=== PATIENT | female | born 1950 | race African-American/Black ===

== ENCOUNTER → 2016-03-17 | Outpatient (CLI) | payer MEDICARE, BC ==
--- NOTE | 2016-03-17 12:09 | KCIC ---
Bilateral digital screening mammograms with CAD: HISTORY Routine screening. COMPARISON No previous films are available for comparison. FINDINGS Breast density category B. The skin and nipples show no abnormalities. No abnormal lymph nodes are seen in the axilla. The breast parenchyma shows scattered fibroglandular density. There is some nodularity present in the left breast at approximately the 10 o'clock and 11 o'clock B positions. Recommend further evaluation with cone compression views and ultrasound. There are no other dominant masses, suspicious calcifications or architectural distortions. IMPRESSION Nodularity at the 10 o'clock and 11 o'clock B positions of the left breast. Recommend further evaluation with additional views and ultrasound. This study was interpreted with the benefit of Computerized Aided Detection (CAD). Mammography is not 100% sensitive in detecting breast cancer. Therefore, a self breast exam and a clinical breast exam are very important. A negative mammogram does not negate a clinically suspicious finding and should not result in a delay in biopsying a clinically suspicious abnormality. BI-RADS category 0: Incomplete. Additional imaging is recommended. This patient's information has been entered into a reminder system for the patient to be notified with the results of this examination and a target date for her next mammograms. Electronically signed by: Delma Claire MD (Mar 17, 2016 12:08:11)
== END | disposition home or self-care (01) ==
LOC: KCIC MAMMO 08:46
PROVIDERS: ATTEND Family Medicine
DX: Z12.31 Encounter for screening mammogram for malignant neoplasm of breast (principal)
CPT/HCPCS: G0202; 77067

== ENCOUNTER → 2016-09-13 | Outpatient (CLI) | payer MEDICARE, BC ==
--- NOTE | 2016-09-13 14:56 | RAD ---
EXAM: BREAST LEFT, DIGITAL DIAGNOSTIC LT HISTORY: Follow-up of asymmetries of left breast. COMPARISON: Priors including 03/17/2016 Standard mammographic views are obtained of the left breast. This study was interpreted with the benefit of Computerized Aided Detection (CAD). FINDINGS: The breast parenchyma shows scattered fibroglandular densities. Breast parenchyma level II. There is repeat demonstration of some asymmetric tissue within the left upper breast which does not appear significantly changed when compared to prior examination. The patient was then sent ultrasound to further evaluate the region. Focused ultrasound images were obtained at the 10:00 position of the left breast in the region of concern on prior exam. There are no definite masses within this region. There is glandular tissue as well as fatty tissue seen within the region. IMPRESSION: No major change in appearance of previously identified asymmetry of the left breast. Could be secondary to asymmetric glandular tissue but would obtain a follow-up in 6 months to ensure no increase. BI-RADS CATEGORY: 3 PROBABLE BENIGN-SHORT TERM F/U RECOMMENDED FOLLOW-UP: 6M 6 MONTH FOLLOW-UP PQRS compliance statement: Patient information was entered into a reminder system with a target due date for the next mammogram. Mammography is a sensitive method for finding small breast cancers, but it does not detect them all and is not a substitute for careful clinical examination. A negative mammogram does not negate a clinically suspicious finding and should not result in delay in biopsying a clinically suspicious abnormality. "Our facility is accredited by the [employer] Mammography [employer]."
== END | disposition home or self-care (01) ==
LOC: KCIC MAMMO 12:45
PROVIDERS: ATTEND Family Medicine
DX: N64.89 Other specified disorders of breast (principal)
CPT/HCPCS: 76641; G0206; 77065

== ENCOUNTER → 2017-03-23 | Outpatient (CLI) | payer BC | END | disposition home or self-care (01) | LOC: MAMMO 10:36 | DX: Z12.31 Encounter for screening mammogram for malignant neoplasm of breast (principal) | CPT/HCPCS: 77067 ==

== ENCOUNTER → 2018-05-14 | Outpatient (CLI) | payer BC ==
--- NOTE | 2018-05-14 10:23 | RAD ---
DATE: 05/14/2018 EXAM: MAMMO CARSON SCREENING BILATERAL HISTORY: Routine screening mammogram. COMPARISON: Previous mammogram from 03/23/2017. This study was interpreted with the benefit of Computerized Aided Detection (CAD). FINDINGS: Breast Density: SCATTERED The breast parenchyma shows scattered fibroglandular densities. Breast parenchyma level B. The skin and nipples are within normal limits. No suspicious calcifications, spiculated mass or area of architectural distortion. IMPRESSION: No mammographic evidence of malignancy. Stable mammogram. BI-RADS CATEGORY: 2 BENIGN FINDING(S) RECOMMENDED FOLLOW-UP: 12M 12 MONTH FOLLOW-UP PQRS compliance statement: Patient information was entered into a reminder system with a target due date for the next mammogram. Mammography is a sensitive method for finding small breast cancers, but it does not detect them all and is not a substitute for careful clinical examination. A negative mammogram does not negate a clinically suspicious finding and should not result in delay in biopsying a clinically suspicious abnormality. "Our facility is accredited by the [employer] Mammography [employer]."
== END | disposition home or self-care (01) ==
LOC: MAMMO 07:51
PROVIDERS: ATTEND Family Medicine
DX: Z12.31 Encounter for screening mammogram for malignant neoplasm of breast (principal)
CPT/HCPCS: 77063; 77067

== ENCOUNTER → 2019-02-21 | Outpatient (CLI) | payer BC ==
--- NOTE | 2019-02-21 08:29 | RAD ---
Examination: Ultrasound left axilla HISTORY: History of left axillary lump COMPARISON: None available Findings/ impression: Ultrasound of the left axilla demonstrates a 9 mm hypoechogenicity without significant vascular flow, uncertain etiology, could be a small lymph node or nodule. Recommend CT with IV contrast if clinically feasible for better evaluation. Electronically signed by: Enrrique Olea MD (02/21/2019 8:26 AM) [id number]
== END | disposition home or self-care (01) ==
LOC: US 08:02
PROVIDERS: ATTEND Family Medicine
DX: R22.32 Localized swelling, mass and lump, left upper limb (principal)
CPT/HCPCS: 76881

== ENCOUNTER → 2019-09-30 | Outpatient (CLI) | payer BC ==
--- NOTE | 2019-10-01 13:42 | RAD ---
DATE: 09/30/2019 7:49 AM EXAM: MAMMO CARSON SCREENING BILATERAL HISTORY: Screening COMPARISON: 05/14/2018, 03/23/2017 Bilateral CC and MLO views of the breasts were performed. Bilateral breast tomosynthesis was performed in CC and MLO projections. This study was interpreted with the benefit of Computerized Aided Detection (CAD). FINDINGS: Breast Density: SCATTERED The breast parenchyma shows scattered fibroglandular densities. Breast parenchyma level B No suspicious masses, microcalcifications or architectural distortion is present to suggest malignancy in either breast. The visualized axillae are unremarkable. IMPRESSION: No mammographic evidence of malignancy. BI-RADS CATEGORY: 1 NEGATIVE RECOMMENDED FOLLOW-UP: 12M 12 MONTH FOLLOW-UP Annual screening mammography is recommended, unless clinically indicated sooner based on symptoms or change in physical exam. PQRS compliance statement: Patient information was entered into a reminder system with a target due date for the next mammogram. Mammography is a sensitive method for finding small breast cancers, but it does not detect them all and is not a substitute for careful clinical examination. A negative mammogram does not negate a clinically suspicious finding and should not result in delay in biopsying a clinically suspicious abnormality. "Our facility is accredited by the [employer] Mammography [employer]."
== END | disposition home or self-care (01) ==
LOC: MAMMO 07:42
PROVIDERS: ATTEND Family Medicine
DX: Z12.31 Encounter for screening mammogram for malignant neoplasm of breast (principal)
CPT/HCPCS: 77063; 77067

== ENCOUNTER → 2020-08-27 | Outpatient (CLI) | payer BC ==
--- NOTE | 2020-08-27 08:33 | KCIC ---
EXAMINATION: DXA BONE DENSITY AXIAL INDICATION:69 years, Female, or osteoporosis without current pathological fracture. COMPARISON: None. TECHNIQUE: Dual energy x-ray absorptiometry of the lumbar spine and both hips was performed. T-score of average bone mineral density based was calculated based on standard deviations above or below the expected young adult normal value. FINDINGS: * The average bone mineral density associated with L1-L4 is 0.844 g/cm^2, corresponding with a T-sco re of -1.8. * Left femoral neck bone mineral density is 0.765 g/cm^2, corresponding with a T-score of -1.5. Refer to the worksheets for full detail. IMPRESSION: 1. Lumbar spine demonstrates osteopenia. Average bone mineral density yields a T-score between -1.0 a nd -2.5. Fracture risk is increased. 2. Left femoral neck demonstrates osteopenia. Average bone mineral density yields a T-score between - 1.0 and -2.5. Fracture risk is increased. Notice: BMD in post menopausal women is classified as normal (T score = -1 or higher), osteopenia (T score = -1.1 to -2.4), or osteoporosis (T score = -2.5 for less), according to criteria established b y the WHO. Electronically signed by: Jocelyne Marroquin MD (08/27/2020 8:30 AM) [id number]
== END ==
LOC: KCIC DEXA 07:53
PROVIDERS: ATTEND Family Medicine
DX: M85.89 Other specified disorders of bone density and structure, multiple sites (principal); M81.0 Age-related osteoporosis without current pathological fracture
CPT/HCPCS: 77080

== ENCOUNTER → 2020-09-30 | Outpatient (CLI) | payer BC ==
--- NOTE | 2020-09-30 09:15 | RAD ---
EXAM: Bilateral digital screening mammogram with tomosynthesis. HISTORY: 69-year-old female presents for screening mammography. TECHNIQUE: Full-field digital craniocaudal and mediolateral oblique 2D and 3D tomosynthesis images of both breasts are obtained for evaluation. Computer aided detection was applied. COMPARISON: 09/30/2019 and 05/14/2018 BREAST PARENCHYMAL DENSITY: Level B - Scattered fibroglandular densities. FINDINGS: There is no new suspicious mass, microcalcification or region of architectural distortion. IMPRESSION: BI-RADS Category 2: Benign finding(s). RECOMMENDATION: Annual mammography is recommended. If your mammogram demonstrates that you have dense breast tissue, which could hide abnormalities, and if you have other risk factors for breast cancer that have been identified, you might benefit from s upplemental screening tests that may be suggested by your ordering physician. Dense breast tissue, i n and of itself, is a relatively common condition. This information is not provided to cause undue c oncern, but rather to raise your awareness and to promote discussion with your physician regarding th e presence of other risk factors, in addition to dense breast tissue. A report of your mammography re sults will be sent to you and your physician. You should contact your physician if you have any ques tions or concerns regarding this report. Mammography is a sensitive method for finding small breast cancers, but it does not detect them all a nd is not a substitute for careful clinical examination. A negative mammogram does not negate a clin ically suspicious finding and should not result in delay in biopsying a clinically suspicious abnorma lity. PQRS compliance statement - Patient information was entered into a reminder system with a target due date for the next mammogram. "Our facility is accredited by the [employer] Mammography [employer]." Electronically signed by: Denise Baires MD (09/30/2020 9:13 AM) [id number]
== END ==
LOC: MAMMO 07:52
PROVIDERS: ATTEND Family Medicine
DX: Z12.31 Encounter for screening mammogram for malignant neoplasm of breast (principal)
CPT/HCPCS: 77063; 77067

== ENCOUNTER → 2021-06-23 | Outpatient (CLI) | payer BC ==
[~2021-06-23] MED LIST: AMLO-187 PO; BRIM5DRO4 OD; LATA7.5D OU; LOSA100T14 PO; METF750T39 PO; NEO/5DRO5 EACHEYE; OLIV250C PO; PIOG15TA42 PO; PREG100C PO; SENN1TAB62 PO; TIMO5DRO26 EACHEYE; magnesium potassium PO
--- NOTE | 2021-06-23 16:43 | PDOC1 ---
INITIAL PAIN CONSULT DATE OF SERVICE: DOS: DATE: 06/23/21 TIME: 16:29 CHIEF COMPLAINT: Chief Complaint: Right-sided facial, and scalp pain HISTORY OF PRESENT ILLNESS: 70-year-old female presents with history of pain right side of the face as well as the forehead around the orbits and the temporal and parietal distribution secondary to shingles outbreak. Patient reports this happened March 30, 2021 with rash spreading around the orbits of his forehead and into the scalp to the temporal region and also the superior aspect of the ear patient reports initially had a headache then had sore eyelid then began having a blistering rash in the same distribution as the pain, was treated with Valtrex but still has significant pain now 3 months later with pain in the right scalp over the orbits preauricular region as well as the temporal region and parietal region on the right side. Patient reports it is "on fire" in the scalp with any movement of the hair she is unable to sleep on her right side secondary to the pain patient reports it wakes her from sleep least 3-4 times a night does not have any visual disturbance but still has some significant swelling of the right superior eyelid. Patient was given prednisone as well also hydrocodone neither which helped significantly with the pain. Patient rates her disability rating is a 0-10 10 being the worst is a 9 with an home responsibilities, 10 in recreation social activity self-care and life support activities. Patient scribes pain is constant sharp throbbing stabbing shooting stinging and burning. PAST MEDICAL HISTORY: PMH: Diabetes, hypertension, hyperlipidemia, arthritis PREVIOUS SURGERIES: Past Surgical Hx: None CURRENT MEDICATIONS: Current Meds: Active Scripts Medications Dose Route/Sig Max Daily Dose Days Date Category [place] Extract 250 Mg Capsule 250 Mg PO DAILY 06/23/21 Reported [magnesium potassium] 1 PO WEEKLY 06/23/21 Reported Brimonidine Tartrate 5 Ml Drops 1 Drop OD BID 06/23/21 Reported Latanoprost 0.005% Eye Drop (Latanoprost/Pf) 7.5 Ml Drops 1 Drop OU QHS 06/23/21 Reported Betimol (Timolol) 5 Ml Drops 1 Drop EACHEYE BID 30 06/23/21 Reported Wtgsds-Qksrp-Jltrppzy Eye Drop (Reilly/Polymyx B Sulf/Dexameth) 5 Ml Drops.susp 1 Drop EACHEYE TID 06/23/21 Reported Metformin Hcl Er (Metformin Hcl) 750 Mg Tab.er.24h 1 Tab PO DAILY 30 06/23/21 Reported Amlodipine Besylate 10 Mg Tablet 10 Mg PO DAILY 06/23/21 Reported Actos (Pioglitazone Hcl) 15 Mg Tablet 1 Tab PO DAILY 30 06/23/21 Reported Losartan Potassium 100 Mg Tablet 100 Mg PO DAILY 06/23/21 Reported Senna Plus Tablet (Sennosides/Docusate Sodium) 1 Each Tablet 1 Tab PO HS 20 06/23/21 Reported Lyrica (Pregabalin) 100 Mg Capsule 1 Cap PO BID 06/23/21 Reported FAMILY HISTORY: Family Hx: Diabetes, hypertension SOCIAL HISTORY: Social Hx: Patient not drink alcohol does not smoke not use any illegal licit recreational drugs is has 1 child living at home lives locally in [facility] and is currently retired. REVIEW OF SYSTEMS: ROS: Positive for those items mentioned in history of present illness, all systems are reviewed, otherwise negative ,and are complete full and well-documented on patient's chart. PHYSICAL EXAM: VS: Blood pressure is 118/83 pulse 88 respirations 20 temperature is 98.8 F height is 5 foot 6 inches weight is 150 pounds. PE: PHYSICAL EXAMINATION: GENERAL: The patient is awake, alert, oriented, appropriate, very pleasant in demeanor, patient accompanied by her daughter and grandson HEENT: Shows normocephalic, increased pigmentation from previous zoster over the medial aspect of the zygomatic lateral aspect as well as the supraorbital ridge and eyebrow with significant tenderness and allodynia over the anterior forehead as well as the adventist region and the preauricular region as well as a supra- auricular region scalp shows significant tenderness with palpation and even with light movement of patient's hair without contacting the scalp is very painful as well in the parietal and temporal region on the right side. Extraocular movements are intact and symmetrical. Oral cavity: Mucous membranes moist and pink. NECK: Shows anterior throat supple without palpable lymphadenopathy noted. Swallow reflex symmetrical. CHEST: Shows normal on inspection. Breath sounds are clear bilaterally, no rales rhonchi or wheezes auscultated. HEART: Shows S1, S2 clear. No murmurs auscultated. ABDOMEN: Soft, nontender, nondistended. No palpable organomegaly is noted. SKIN: Shows warm and dry, good turgor. No edema. 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 Patient like to pursue interventional techniques we discussed a stellate ganglion block on the right using description as well as anatomical models to describe the procedure. Patient wait for preauthorization and will return we will plan on right-sided stellate ganglion block with fluoroscopic guidance. In the meantime, we will prescribe Emla cream with instructions side effects aware of discussed with the medication. Patient will follow-up after preauthorization we will plan on right-sided stellate ganglion block with fluoroscopic guidance at that time. DARRELL MCKEON MD Jun 23, 2021 16:43
== END | disposition home or self-care (01) ==
LOC: PNCL 14:28
PROVIDERS: ATTEND Anesthesiology
DX: M54.81 Occipital neuralgia (principal); I10 Essential (primary) hypertension; E11.9 Type 2 diabetes mellitus without complications; M19.90 Unspecified osteoarthritis, unspecified site; Z79.84 Long term (current) use of oral hypoglycemic drugs; Z79.899 Other long term (current) drug therapy
CPT/HCPCS: G0463